=== PATIENT | female | born 1975 | race Caucasian/White ===

== ENCOUNTER 2022-06-23 18:35 | Inpatient (IN) | payer BC ==
[~2022-06-23] VITALS: Ht 147.3 cm; Wt 96.4 kg
[2022-06-23] MEDS ORDERED: SODIUM CHLORIDE 0.9% 1000ML 2,000 ML IV STA (19:02)
[2022-06-23] MEDS ORDERED: ACETAMINOPHEN 1000 MG/100 ML IV STA (19:10)
[2022-06-23 19:21] LABS: HEMOGLOBIN 12.3 g/dL (12.0-16.0); RED BLOOD COUNT 4.08 x10e6/uL (3.6-5.1)
[2022-06-23 19:22] LABS: BASOPHILS % 0.2 % (0.0-1.0); LYMPHOCYTES % 6.6 % (18.0-39.1); MEAN CORPUSCULAR HEMOGLOBIN 30.1 pg (28-32); MEAN CORPUSCULAR HGB CONC 35.1 g/dL (31-35); MEAN CORPUSCULAR VOLUME 85.8 fL (81-99); MONOCYTES # (AUTO) 0.5 (0.2-0.8); NEUTROPHILS % 88.4 % (38.7-80.0); PLATELET COUNT 193 x10e3/uL (140-360); RED CELL DISTRIBUTION WIDTH 12.8 % (11.7-14.4)
[2022-06-23] MEDS ORDERED: ACETAMINOPHEN 1000 MG/100 ML 100 ML IV ONE (19:23)
[2022-06-23 19:42] LABS: ALBUMIN 2.3 g/dL (3.5-5.0); ALBUMIN/GLOBULIN RATIO 0.6 (0.8-2.0); ANION GAP 21.6 mmol/L (8-16); CREATININE, SERUM 0.9 mg/dL (0.57-1.11); POTASSIUM 3.6 mmol/L (3.5-5.1)
[2022-06-23] MEDS ORDERED: PIPERACILLIN/TAZOBACTAM 3.375 GM VIAL ONE (19:43)
[2022-06-23] MEDS ORDERED: Morphine 4mg INJECTION 4 MG/ML INJ IV PRN (21:30)
[2022-06-23] MEDS: SODIUM CHLORIDE 0.9% 1000ML 1,000 ML IV SCH (22:24)
[2022-06-23 22:51] LABS: CREATINE KINASE MB 1.4 ng/mL (0-5.0)
[2022-06-23 22:55] LABS: CLARITY,URINE CLOUDY (CLEAR); COLOR,URINE YELLOW (YELLOW); LEUKOCYTE ESTERASE ,URINE NEGATIVE (NEGATIVE)
[2022-06-23 22:56] LABS: KETONES,URINE NEGATIVE (NEGATIVE); NITRITE,URINE NEGATIVE (NEGATIVE); PROTEIN,URINE DIPSTICK 1+ (NEGATIVE); URINE UROBILINOGEN 0.2 mg/dL (0.2 - 1)
[2022-06-23 23:07] LABS: BACTERIA,URINE MANY /HPF; EPITHELIAL CELLS,URINE MODERATE /LPF; RBC,URINE >50 /HPF (0-5)
[2022-06-23] MEDS ORDERED: IOPAMIDOL 370 MG/ML 100 ML INFUS..BTL INJ ONE (23:56)
[2022-06-24] VITALS (9 sets, daily range): BP systolic 82–104; BP diastolic 45–68
[2022-06-24] MEDS ORDERED: ADDERALL XR 3030 MG PO (00:11)
[2022-06-24] MEDS: ONDANSETRON HCL INJ 2MG/ML 2ML 2 MG/ML VIAL IV PRN ×2 (04:25→19:15)
[2022-06-24] MEDS ORDERED: ACETAMINOPHEN 1000 MG/100 ML IV STA (05:21)
[2022-06-24] MEDS ORDERED: SODIUM CHLORIDE 0.9% 1000ML 1,000 ML IV ONE ×4 (05:30→23:15)
[2022-06-24] MEDS ORDERED: DIPHENHYDRAMINE HCL INJ 50 MG/ML VIAL IV ONE (05:45)
[2022-06-24] MEDS: IBUPROFEN 200 MG TAB PO SCH ×6 (06:02→23:31)
[2022-06-24 06:06] LABS: BASOPHILS % 0.1 % (0.0-1.0); HEMATOCRIT 28.1 % (34.2-44.1); HEMOGLOBIN 9.7 g/dL (12.0-16.0); LYMPHOCYTES # (AUTO) 0.8 (1.0-3.2); LYMPHOCYTES % 5.4 % (18.0-39.1); MEAN CORPUSCULAR HEMOGLOBIN 29.6 pg (28-32); MEAN CORPUSCULAR HGB CONC 34.5 g/dL (31-35); MEAN CORPUSCULAR VOLUME 85.7 fL (81-99); MONOCYTES # (AUTO) 0.5 (0.2-0.8); MONOCYTES % 3.5 % (4.4-11.3); NEUTROPHILS # (AUTO) 12.6 (2.1-6.9); NEUTROPHILS % 88.7 % (38.7-80.0); PLATELET COUNT 193 x10e3/uL (140-360); RED BLOOD COUNT 3.28 x10e6/uL (3.6-5.1); RED CELL DISTRIBUTION WIDTH 12.9 % (11.7-14.4)
[2022-06-24] MEDS: SODIUM CHLORIDE 0.9% 1000ML 1,000 ML IV SCH ×2 (06:12→13:24)
[2022-06-24 06:29] LABS: ALBUMIN 1.8 g/dL (3.5-5.0); ALBUMIN/GLOBULIN RATIO 0.6 (0.8-2.0); ANION GAP 19.2 mmol/L (8-16); CREATININE, SERUM 0.69 mg/dL (0.57-1.11); POTASSIUM 3.2 mmol/L (3.5-5.1)
[2022-06-24 06:32] LABS: CALCIUM 6.6 mg/dL (8.4-10.2)
[2022-06-24] MEDS: HYDROCODONE/APAP 5MG-325MG TAB PO PRN (09:41)
[2022-06-24 14:15] LABS: CREATINE KINASE MB 3.4 ng/mL (0-5.0)
[2022-06-24] MEDS ORDERED: SODIUM CHLORIDE 0.9% 1000ML 1,000 ML IV SCH (17:00)
[2022-06-24] MEDS ORDERED: POTASSIUM CHLORIDE 20 MEQ TAB CR PO ONE (17:15)
[2022-06-24 22:47] LABS: % IRON SATURATION 13 % (15-50); IRON 24 ug/dL (50-170); TOTAL IRON BINDING CAPACITY 186 ug/dL (261-478); TRANSFERRIN 133 mg/dL (180-382)
[2022-06-25] VITALS (37 sets, daily range): BP systolic 69–126; BP diastolic 18–86
[2022-06-25] MEDS ORDERED: ALBUTEROL SULF 0.083% NEB SOLN 3 ML NEB ONE (01:42)
[2022-06-25] MEDS: IBUPROFEN 200 MG TAB PO SCH ×2 (06:08→06:34)
[2022-06-25] MEDS: ALPRAZOLAM 0.25 MG TAB PO PRN ×3 (06:40→19:45)
[2022-06-25 07:40] LABS: BASOPHILS # (AUTO) 0.1 (0.0-0.1); BASOPHILS % 0.4 % (0.0-1.0); EOSINOPHILS % 0.1 % (0.0-6.0); HEMOGLOBIN 11.2 g/dL (12.0-16.0); LYMPHOCYTES # (AUTO) 1.1 (1.0-3.2); LYMPHOCYTES % 7.7 % (18.0-39.1); MEAN CORPUSCULAR HEMOGLOBIN 30.1 pg (28-32); MEAN CORPUSCULAR HGB CONC 33.9 g/dL (31-35); MEAN CORPUSCULAR VOLUME 88.7 fL (81-99); MONOCYTES # (AUTO) 0.6 (0.2-0.8); MONOCYTES % 3.8 % (4.4-11.3); NEUTROPHILS # (AUTO) 12.4 (2.1-6.9); NEUTROPHILS % 84.6 % (38.7-80.0); PLATELET COUNT 269 x10e3/uL (140-360); RED BLOOD COUNT 3.72 x10e6/uL (3.6-5.1); RED CELL DISTRIBUTION WIDTH 13.8 % (11.7-14.4)
[2022-06-25] MEDS: HYDROCODONE/APAP 5MG-325MG TAB PO PRN ×2 (07:55→18:48)
[2022-06-25] MEDS: ONDANSETRON HCL INJ 2MG/ML 2ML 2 MG/ML VIAL IV PRN (07:55)
[2022-06-25 08:03] LABS: INR 1.1; PROTHROMBIN TIME 15.2 seconds (11.9-14.5)
[2022-06-25 08:35] LABS: ALBUMIN 1.7 g/dL (3.5-5.0); ALBUMIN/GLOBULIN RATIO 0.5 (0.8-2.0); ANION GAP 19.5 mmol/L (8-16); CREATININE, SERUM 0.7 mg/dL (0.57-1.11); POTASSIUM 3.5 mmol/L (3.5-5.1)
[2022-06-25 08:38] LABS: CALCIUM 6.8 mg/dL (8.4-10.2)
[2022-06-25] MEDS ORDERED: FUROSEMIDE INJ 10 MG/ML 2 ML VIAL IV ONE (08:45)
[2022-06-25] MEDS ORDERED: METHYLPREDNISOLONE SOD SUCC 40 MG/ML VIAL 1ML IV ONE (08:45)
[2022-06-25] MEDS: IRON SUCROSE 100 MG in SODIUM CHLORIDE 0.9% 100 ML IV SCH (09:09)
[2022-06-25] MEDS: ALBUTEROL SULF 0.083% NEB SOLN 3 ML NEB NEB PRN (20:25)
[2022-06-26] VITALS (19 sets, daily range): BP systolic 86–116; BP diastolic 47–95
[2022-06-26] MEDS: HYDROCODONE/APAP 5MG-325MG TAB PO PRN ×3 (02:48→21:34)
[2022-06-26] MEDS: ALPRAZOLAM 0.25 MG TAB PO PRN ×3 (02:48→20:23)
[2022-06-26] MEDS: ALBUTEROL SULF 0.083% NEB SOLN 3 ML NEB NEB PRN ×2 (03:22→07:55)
[2022-06-26 06:19] LABS: BASOPHILS % 0.2 % (0.0-1.0); HEMATOCRIT 25.9 % (34.2-44.1); HEMOGLOBIN 9.1 g/dL (12.0-16.0); LYMPHOCYTES # (AUTO) 1.3 (1.0-3.2); LYMPHOCYTES % 11.4 % (18.0-39.1); MEAN CORPUSCULAR HEMOGLOBIN 29.8 pg (28-32); MEAN CORPUSCULAR HGB CONC 35.1 g/dL (31-35); MEAN CORPUSCULAR VOLUME 84.9 fL (81-99); MONOCYTES # (AUTO) 0.3 (0.2-0.8); NEUTROPHILS # (AUTO) 9.1 (2.1-6.9); NEUTROPHILS % 83.1 % (38.7-80.0); PLATELET COUNT 323 x10e3/uL (140-360); RED BLOOD COUNT 3.05 x10e6/uL (3.6-5.1); RED CELL DISTRIBUTION WIDTH 14.4 % (11.7-14.4)
[2022-06-26 06:43] LABS: ALBUMIN 1.6 g/dL (3.5-5.0); ALBUMIN/GLOBULIN RATIO 0.5 (0.8-2.0); ANION GAP 16.3 mmol/L (8-16); CREATININE, SERUM 0.71 mg/dL (0.57-1.11); POTASSIUM 3.3 mmol/L (3.5-5.1)
[2022-06-26 06:52] LABS: CALCIUM 6.7 mg/dL (8.4-10.2)
[2022-06-26] MEDS: IRON SUCROSE 100 MG in SODIUM CHLORIDE 0.9% 100 ML IV SCH (09:09)
[2022-06-26] MEDS ORDERED: POTASSIUM CHLORIDE 20MEQ/100ML 200 ML IV ONE (12:30)
[2022-06-26] MEDS: IBUPROFEN 200 MG TAB PO PRN ×2 (17:30→21:34)
[2022-06-26] MEDS: ACETAMINOPHEN 325 MG TAB PO PRN (17:31)
[2022-06-26] MEDS: GUAIFENESIN 600MG/DEXTROMETHORPHAN 30MG TABSR PO SCH (22:50)
[2022-06-27] MEDS: HYDROCODONE/APAP 5MG-325MG TAB PO PRN ×4 (05:19→20:30)
[2022-06-27 06:14] LABS: PHOSPHORUS 1.8 MG/DL (2.3-4.7)
[2022-06-27 06:33] LABS: BASOPHILS % 0.1 % (0.0-1.0); EOSINOPHILS % 0.3 % (0.0-6.0); HEMATOCRIT 26.3 % (34.2-44.1); HEMOGLOBIN 8.8 g/dL (12.0-16.0); LYMPHOCYTES # (AUTO) 2.3 (1.0-3.2); LYMPHOCYTES % 24.5 % (18.0-39.1); MEAN CORPUSCULAR HEMOGLOBIN 30.1 pg (28-32); MEAN CORPUSCULAR HGB CONC 33.5 g/dL (31-35); MEAN CORPUSCULAR VOLUME 90.1 fL (81-99); MONOCYTES # (AUTO) 0.7 (0.2-0.8); MONOCYTES % 7.5 % (4.4-11.3); NEUTROPHILS # (AUTO) 5.9 (2.1-6.9); NEUTROPHILS % 63.7 % (38.7-80.0); PLATELET COUNT 410 x10e3/uL (140-360); RED BLOOD COUNT 2.92 x10e6/uL (3.6-5.1); RED CELL DISTRIBUTION WIDTH 14.6 % (11.7-14.4)
[2022-06-27] MEDS: ALPRAZOLAM 0.25 MG TAB PO PRN ×3 (06:38→20:29)
[2022-06-27] MEDS: ALBUTEROL SULF 0.083% NEB SOLN 3 ML NEB NEB PRN ×2 (06:50→19:40)
[2022-06-27 07:03] LABS: ALBUMIN 1.8 g/dL (3.5-5.0); ALBUMIN/GLOBULIN RATIO 0.6 (0.8-2.0); ANION GAP 10.1 mmol/L (8-16); CALCIUM 7.2 mg/dL (8.4-10.2); CREATININE, SERUM 0.64 mg/dL (0.57-1.11); POTASSIUM 4.1 mmol/L (3.5-5.1)
[2022-06-27 08:17] VITALS: BP 101/62
[2022-06-27 08:36] VITALS: BP 101/62
[2022-06-27] MEDS ORDERED: SODIUM PHOSPHATE IN 0.9 % NACL 15 MMOL in SODIUM CHLORIDE 0.9% 250ML 250 ML IV ONE ×2 (09:00)
[2022-06-27] MEDS: ASCORBIC ACID 500 MG TAB PO SCH ×2 (09:27→16:35)
[2022-06-27] MEDS: GUAIFENESIN 600MG/DEXTROMETHORPHAN 30MG TABSR PO SCH ×2 (09:28→16:35)
[2022-06-27 12:29] VITALS: BP 122/92
[2022-06-27] MEDS: IRON SUCROSE 100 MG in SODIUM CHLORIDE 0.9% 100 ML IV SCH (14:58)
[2022-06-27 16:28] VITALS: BP 120/86
[2022-06-27 20:00] VITALS: BP 111/73
[2022-06-27 21:00] VITALS: BP 111/73
[2022-06-27] MEDS ORDERED: MAGNESIUM HYDROXIDE 30 ML UDC PO ONE (23:00)
[2022-06-28] VITALS (8 sets, daily range): BP systolic 109–139; BP diastolic 72–90
[2022-06-28] MEDS: HYDROCODONE/APAP 5MG-325MG TAB PO PRN ×5 (01:45→21:37)
[2022-06-28] MEDS: ALBUTEROL SULF 0.083% NEB SOLN 3 ML NEB NEB PRN ×3 (02:15→14:38)
[2022-06-28 06:15] LABS: ANION GAP 11.9 mmol/L (8-16); CALCIUM 7.3 mg/dL (8.4-10.2); CREATININE, SERUM 0.59 mg/dL (0.57-1.11); PHOSPHORUS 3.1 MG/DL (2.3-4.7); POTASSIUM 3.9 mmol/L (3.5-5.1)
[2022-06-28 06:37] LABS: BASOPHILS % 0.6 % (0.0-1.0); EOSINOPHILS # (AUTO) 0.1 (0.0-0.4); HEMATOCRIT 28.9 % (34.2-44.1); HEMOGLOBIN 9.6 g/dL (12.0-16.0); LYMPHOCYTES # (AUTO) 2.5 (1.0-3.2); LYMPHOCYTES % 34.5 % (18.0-39.1); MEAN CORPUSCULAR HEMOGLOBIN 30.1 pg (28-32); MEAN CORPUSCULAR HGB CONC 33.2 g/dL (31-35); MEAN CORPUSCULAR VOLUME 90.6 fL (81-99); MONOCYTES # (AUTO) 0.6 (0.2-0.8); MONOCYTES % 8.2 % (4.4-11.3); NEUTROPHILS # (AUTO) 3.6 (2.1-6.9); NEUTROPHILS % 50.1 % (38.7-80.0); PLATELET COUNT 452 x10e3/uL (140-360); RED BLOOD COUNT 3.19 x10e6/uL (3.6-5.1); RED CELL DISTRIBUTION WIDTH 14.8 % (11.7-14.4)
[2022-06-28] MEDS: ALPRAZOLAM 0.25 MG TAB PO PRN ×2 (07:09→16:36)
[2022-06-28] MEDS: BENZONATATE 100 MG CAP PO SCH ×3 (08:38→20:10)
[2022-06-28] MEDS: IRON SUCROSE 100 MG in SODIUM CHLORIDE 0.9% 100 ML IV SCH (08:38)
[2022-06-28] MEDS: ASCORBIC ACID 500 MG TAB PO SCH ×2 (08:38→16:36)
[2022-06-28] MEDS ORDERED: ONDANSETRON HCL 4 MG ORAL DISINTEGRATING TAB PO PRN (08:45)
[2022-06-29] VITALS (7 sets, daily range): BP systolic 117–144; BP diastolic 71–80
[2022-06-29] MEDS: ALPRAZOLAM 0.25 MG TAB PO PRN ×4 (01:14→22:12)
[2022-06-29] MEDS: IBUPROFEN 200 MG TAB PO PRN (01:35)
[2022-06-29] MEDS: HYDROCODONE/APAP 5MG-325MG TAB PO PRN ×4 (02:37→21:24)
[2022-06-29] MEDS: ALBUTEROL SULF 0.083% NEB SOLN 3 ML NEB NEB PRN (06:20)
[2022-06-29] MEDS ORDERED: LIDOCAINE HCL 2% LOCAL INJ 5 ML SDV VIAL INJ ONE (09:01)
[2022-06-29] MEDS ORDERED: PROPOFOL IV EMULSION 10 MG/ML 20 ML VIAL ONE (09:01)
[2022-06-29] MEDS: ASCORBIC ACID 500 MG TAB PO SCH ×2 (09:27→17:00)
[2022-06-29] MEDS: BENZONATATE 100 MG CAP PO SCH ×3 (09:27→21:24)
[2022-06-29] MEDS: IRON SUCROSE 100 MG in SODIUM CHLORIDE 0.9% 100 ML IV SCH (09:28)
[2022-06-29] MEDS: ACETAMINOPHEN 325 MG TAB PO PRN ×2 (09:32→15:48)
[2022-06-30] VITALS: BP 130/79
[2022-06-30 04:00] VITALS: BP 134/71
[2022-06-30] MEDS: HYDROCODONE/APAP 5MG-325MG TAB PO PRN (06:03)
[2022-06-30 07:50] VITALS: BP 126/69
[2022-06-30 08:46] VITALS: BP 126/69
[2022-06-30] MEDS: BENZONATATE 100 MG CAP PO SCH (09:02)
[2022-06-30] MEDS: ASCORBIC ACID 500 MG TAB PO SCH (09:02)
[2022-06-30] MEDS ORDERED: CEFDINIR300 MG PO (10:51)
[2022-06-30] MEDS ORDERED: PROVENTIL HFA6.7 GM INH (10:51)
[2022-06-30] MEDS ORDERED: MUCINEX DM ER1 EACH PO (10:51)
[2022-06-30] MEDS ORDERED: PANTOPRAZOLE SO40 MG PO (10:51)
[2022-06-30] MEDS ORDERED: ONDANSETRON ODT4 MG PO (10:56)
[2022-06-30 12:03] VITALS: BP 141/81
== END 2022-06-30 12:50 | disposition home or self-care (01) | DRG 871 ==
LOC: ER 18:40 → ERHOLD 21:16 → MED/SURG2 23:42 → ICU 06-25 02:18 → MED/SURG3 06-26 14:43
PROVIDERS: ADMIT Internal Medicine; ATTEND Internal Medicine
PROC: 02HV33Z Insertion of Infusion Device into Superior Vena Cava, Percutaneous Approach (ICD-10-PCS; 2022-06-25)
PROC: 3E04329 Introduction of Other Anti-infective into Central Vein, Percutaneous Approach (ICD-10-PCS; 2022-06-25)
PROC: 0DB78ZX Excision of Stomach, Pylorus, Via Natural or Artificial Opening Endoscopic, Diagnostic (ICD-10-PCS; principal; 2022-06-29 17:32)
DX: A41.9 Sepsis, unspecified organism (principal); J18.9 Pneumonia, unspecified organism; E87.2 Acidosis; Z68.41 Body mass index [BMI] 40.0-44.9, adult; N39.0 Urinary tract infection, site not specified; I50.32 Chronic diastolic (congestive) heart failure; K20.90 Esophagitis, unspecified without bleeding; K29.70 Gastritis, unspecified, without bleeding; K25.9 Gastric ulcer, unspecified as acute or chronic, without hemorrhage or perforation; I11.0 Hypertensive heart disease with heart failure; K75.81 Nonalcoholic steatohepatitis (NASH); E87.6 Hypokalemia; E88.09 Other disorders of plasma-protein metabolism, not elsewhere classified; E83.51 Hypocalcemia; E66.01 Morbid (severe) obesity due to excess calories; D50.9 Iron deficiency anemia, unspecified; E83.39 Other disorders of phosphorus metabolism; D63.8 Anemia in other chronic diseases classified elsewhere; E87.8 Other disorders of electrolyte and fluid balance, not elsewhere classified; G47.33 Obstructive sleep apnea (adult) (pediatric); R73.03 Prediabetes; K76.0 Fatty (change of) liver, not elsewhere classified; Z87.11 Personal history of peptic ulcer disease
CPT/HCPCS: 36415; 36569; 43239; 70450; 71045; 74177; 80048; 80053; 81001; 82270; 82550; 82553; 82607; 82746; 83540; 83605; 83690; 83735; 84100; 84466; 84484; 84702; 85025; 85045; 85610; 87040; 87086; 87400; 88304; 88305; 88312; 88342; 93005; 93306; 94640; 94799; 99284; J1200; J1756; J1940; J2001; J2270; J2405; J2543; J2920; J3480; J7030; J7050; Q0162; Q9967

== ENCOUNTER 2022-11-18 15:57 | Emergency (ER) | payer BC ==
[~2022-11-18] VITALS: Ht 147.3 cm; Wt 96.2 kg
[~2022-11-18 15:57] MED LIST: ADDERALL XR 3030 MG PO; CEFDINIR300 MG PO; MUCINEX DM ER1 EACH PO; ONDANSETRON ODT4 MG PO; PANTOPRAZOLE SO40 MG PO; PROVENTIL HFA6.7 GM INH
== END 2022-11-18 16:30 | disposition home or self-care (01) ==
LOC: ER 16:01
DX: R53.81 Other malaise (principal); F98.8 Other specified behavioral and emotional disorders with onset usually occurring in childhood and adolescence
CPT/HCPCS: 99283

== ENCOUNTER 2023-01-20 19:11 | Emergency (ER) | payer BC ==
[~2023-01-20] VITALS: Ht 147.3 cm; Wt 96.2 kg
[2023-01-20] MEDS ORDERED: HALOPERIDOL LACTATE 5 MG/ML VIAL IV ONE (21:15)
[2023-01-20] MEDS ORDERED: SODIUM CHLORIDE 0.9% 1000ML 1,000 ML IV ONE (21:15)
[2023-01-20] MEDS ORDERED: ONDANSETRON HCL 4 MG ORAL DISINTEGRATING TAB PO ONE (21:15)
[2023-01-20 21:39] LABS: ALBUMIN 3.3 g/dL (3.5-5.0); ALBUMIN/GLOBULIN RATIO 0.8 (0.8-2.0); ANION GAP 16.3 mmol/L (8-16); CREATININE, SERUM 0.95 mg/dL (0.57-1.11); POTASSIUM 3.3 mmol/L (3.5-5.1)
[2023-01-20 21:41] LABS: CALCIUM 9.2 mg/dL (8.4-10.2)
[2023-01-20 21:45] LABS: BASOPHILS % 0.2 % (0.0-1.0); HEMATOCRIT 35.8 % (34.2-44.1); HEMOGLOBIN 12.3 g/dL (12.0-16.0); LYMPHOCYTES # (AUTO) 2.2 (1.0-3.2); LYMPHOCYTES % 19.3 % (18.0-39.1); MEAN CORPUSCULAR HEMOGLOBIN 30.1 pg (28-32); MEAN CORPUSCULAR HGB CONC 34.4 g/dL (31-35); MEAN CORPUSCULAR VOLUME 87.7 fL (81-99); MONOCYTES # (AUTO) 0.7 (0.2-0.8); MONOCYTES % 6.3 % (4.4-11.3); NEUTROPHILS # (AUTO) 8.5 (2.1-6.9); NEUTROPHILS % 73.5 % (38.7-80.0); PLATELET COUNT 480 x10e3/uL (140-360); RED BLOOD COUNT 4.08 x10e6/uL (3.6-5.1); RED CELL DISTRIBUTION WIDTH 13.2 % (11.7-14.4)
[2023-01-20 21:48] LABS: CLARITY,URINE CLOUDY (CLEAR); COLOR,URINE AMBER (YELLOW)
[2023-01-20 21:49] LABS: KETONES,URINE 1+ (NEGATIVE); LEUKOCYTE ESTERASE ,URINE NEGATIVE (NEGATIVE); NITRITE,URINE NEGATIVE (NEGATIVE); PROTEIN,URINE DIPSTICK >=300 (NEGATIVE); URINE UROBILINOGEN 0.2 mg/dL (0.2 - 1)
[2023-01-20 21:52] LABS: BACTERIA,URINE MANY /HPF; EPITHELIAL CELLS,URINE MODERATE /LPF; MUCUS,URINE MANY (RARE); RBC,URINE >50 /HPF (0-5); TRANSITIONAL EPI CELLS,URINE FEW
[2023-01-20 21:56] LABS: AMPHETAMINES SCREEN,URINE NEGATIVE (NEGATIVE); PHENCYCLIDINE SCREEN,URINE NEGATIVE (NEGATIVE)
[2023-01-20 21:57] LABS: BENZODIAZEPINES SCREEN,URINE NEGATIVE (NEGATIVE)
[2023-01-21 02:17] VITALS: BP 111/55
[2023-01-21] MEDS ORDERED: DOXYCYCLINE HY100 MG PO (02:18)
[2023-01-21] MEDS ORDERED: REGLAN10 MG PO (02:18)
== END 2023-01-21 02:27 | disposition home or self-care (01) ==
LOC: ER 19:16
DX: R11.2 Nausea with vomiting, unspecified (principal); R10.10 Upper abdominal pain, unspecified; S51.832D Puncture wound without foreign body of left forearm, subsequent encounter; S51.831D Puncture wound without foreign body of right forearm, subsequent encounter; W54.0XXD Bitten by dog, subsequent encounter; F11.10 Opioid abuse, uncomplicated; F15.10 Other stimulant abuse, uncomplicated; F12.10 Cannabis abuse, uncomplicated; F98.8 Other specified behavioral and emotional disorders with onset usually occurring in childhood and adolescence
CPT/HCPCS: 36415; 74174; 80053; 80307; 81001; 83690; 84702; 85025; 99284; C9113; J1630; J7030; Q0162

== ENCOUNTER 2025-06-20 21:44 | Emergency (ER) | payer BC ==
[~2025-06-20] VITALS: Ht 144.8 cm; Wt 50.8 kg
[~2025-06-20 21:44] MED LIST changes: +DOXYCYCLINE HY100 MG PO; +MEDROL4 M2 PO; +REGLAN10 MG PO
[2025-06-20 21:55] VITALS: TEMP 97.8
[2025-06-20 22:07] VITALS: PULSE 72; RESP 17
[2025-06-20 22:16] VITALS: O2SAT 98
[2025-06-20] MEDS: SODIUM CHLORIDE 0.9% 1000ML 1,000 ML IV ONE (22:31)
[2025-06-20] MEDS: SODIUM CHLORIDE FLUSH 10 ML SYR IV PRN (22:31)
[2025-06-20 22:34] LABS: BASOPHILS % 0.7 % (0.0-1.0); EOSINOPHILS % 1.0 % (0.0-6.0); LYMPHOCYTES % 42.8 % (18.0-39.1); MONOCYTES % 6.3 % (4.4-11.3); NEUTROPHILS % 49.0 % (38.7-80.0); RED CELL DISTRIBUTION WIDTH 12.9 % (11.7-14.4)
[2025-06-20 22:50] LABS: EST GLOMERULAR FILTRATION RATE 107 ML/MIN (>=60)
[2025-06-20 23:53] VITALS: BP 122/68; PULSE 68; RESP 16; TEMP 97.8
== END 2025-06-20 23:56 | disposition home or self-care (01) ==
LOC: ER 21:52
DX: R20.0 Anesthesia of skin (principal); R42 Dizziness and giddiness
CPT/HCPCS: 36415; 71046; 80053; 83735; 83880; 84484; 85025; 93005; 94760; 99284; J7030